=== PATIENT | male | born 1955 | race African-American/Black ===

== ENCOUNTER 2018-07-02 13:45 | Emergency (ER) | payer BC ==
[~2018-07-02] VITALS: Ht 185.4 cm; Wt 92.0 kg
[~2018-07-02 13:45] MED LIST: ALPR1TAB2 PO; ASPI-1073 PO; CELE200C PO; CIALIS; FLONASE; LISI40TA4 PO; LISINOPRIL; PROT40 PO; SIMV80TA2 PO; ZET10 PO; ZETIA; ZOCOR
[2018-07-02 14:04] VITALS: BP 161/83
[2018-07-02] MEDS ORDERED: KETOROLAC 30MG/ML VIAL IV STA (15:00)
[2018-07-02 15:47] LABS: BASOPHILS % 1.3 % (0.0-2.0); EOSINOPHILS % 2.1 % (0.0-5.0); HEMATOCRIT. 41.9 % (42.0-52.0); HEMOGLOBIN. 14.2 g/dL (14.0-18.0); LYMPHOCYTES % 29.7 % (20.0-50.0); MEAN CORPUSCULAR VOLUME 91.1 fL (80.0-94.0); MONOCYTES % 10.5 % (2.0-8.0); NEUTROPHILS % 56.4 % (40.0-76.0)
[2018-07-02 15:52] LABS: CHLORIDE 106 mEq/L (98-107)
[2018-07-02 15:53] LABS: PROTHROMBIN TIME 9.7 sec (9.1-11.1)
[2018-07-02 16:25] LABS: CLARITY URINE CLEAR (CLEAR); COLOR URINE YELLOW (YELLOW); KETONES URINE NEGATIVE (NEGATIVE); LEUKOCYTE ESTERASE URINE NEGATIVE (NEGATIVE); NITRITE URINE NEGATIVE (NEGATIVE); OCCULT BLOOD URINE NEGATIVE (NEGATIVE); PROTEIN URINE NEGATIVE (NEGATIVE); SPECIFIC GRAVITY URINE 1.016 (1.005-1.030); UROBILINOGEN URINE 0.2 E.U./dL (0.2-1.0)
== END 2018-07-02 17:35 | disposition home or self-care (01) ==
LOC: ER 13:45
DX: R10.32 Left lower quadrant pain (principal); I10 Essential (primary) hypertension; E78.00 Pure hypercholesterolemia, unspecified; M54.30 Sciatica, unspecified side; E86.0 Dehydration; E16.2 Hypoglycemia, unspecified; Z79.82 Long term (current) use of aspirin
CPT/HCPCS: 36415; 71045; 74176; 80053; 81003; 83690; 84484; 85025; 85610; 93005; 96374; 99285; J1885